=== PATIENT | male | born 1980 | race Hispanic/Latino ===

== ENCOUNTER 2017-06-16 07:44 | Emergency (ER) | payer OTHER ==
[~2017-06-16] VITALS: Ht 167.6 cm; Wt 99.8 kg
[2017-06-16] MEDS ORDERED: FUL-GLO OP ONE (07:56)
--- NOTE | 2017-06-16 08:19 | ER.PDOC ---
General Chief Complaint: Eye Problems Stated Complaint: FB EYE Time seen by MD: 08:00 Source: patient Exam Limitations: no limitations History of Present Illness Timing/Duration: gradual, yesterday Associated Symptoms: pian, sensitivity to light, redness, matting, eyelid swelling, foreign body sensation, blurred vision Location: right eye Severity: moderate Context: foreign body Allergies: Coded Allergies: No Known Allergies (Unverified , 06/16/17) Past Medical History Medical History: no pertinent history Surgical History: no surgical history Social History Smoking: non-smoker Alcohol Use: none Drug Use: none All Other Systems: Reviewed and Negative Physical Exam General Appearance: alert, no distress Visual Acuity: noted (see nurse assess) Eyelid: (R) edema, (R) erythema, everted for exam (R) Conjunctiva/Sclera: (R) injected Corneas: nml inspection EOM's: intact Pupils: PERRL Head/ENT: nml inspection, pharynx nml Skin Exam: Normal Color, Warm/Dry Neck/Back: nml inspection, painless ROM Resp/CVS: no resp distress, lungs clear, heart sounds nml, reg. rate & rhythm Abdomen: non-tender, no organomegaly Departure Time of Disposition: 08:33 Disposition: 01 HOME, SELF-CARE Impression: Primary Impression: Injury due to foreign body Condition: Improved Duration or Time Spent with Pa: 30 m CAROL DIALLO MD Jun 16, 2017 08:19
[2017-06-16 08:33] VITALS: BP 141/79
== END 2017-06-16 08:31 | disposition home or self-care (01) ==
LOC: ER 07:44
DX: T15.11XA Foreign body in conjunctival sac, right eye, initial encounter (principal); X58.XXXA Exposure to other specified factors, initial encounter; Y93.89 Activity, other specified; Y92.89 Other specified places as the place of occurrence of the external cause; Y99.8 Other external cause status
CPT/HCPCS: 99282